=== PATIENT | female | born 1960 | race Caucasian/White ===

== ENCOUNTER 2017-12-10 13:51 | Outpatient (CLI) | payer MEDICARE | END 2017-12-10 13:52 | disposition home or self-care (01) | LOC: BICULT 13:51 | PROVIDERS: ATTEND Family Medicine | DX: M79.605 Pain in left leg (principal); M79.604 Pain in right leg; M25.521 Pain in right elbow; M81.0 Age-related osteoporosis without current pathological fracture | CPT/HCPCS: 93970 ==

== ENCOUNTER 2017-12-10 14:23 | Outpatient (CLI) | payer MEDICARE | END 2017-12-10 14:24 | disposition home or self-care (01) | LOC: BICMAMMO 14:23 | PROVIDERS: ATTEND Family Medicine | DX: M25.522 Pain in left elbow (principal); M79.605 Pain in left leg; M79.604 Pain in right leg; M85.852 Other specified disorders of bone density and structure, left thigh; M85.851 Other specified disorders of bone density and structure, right thigh | CPT/HCPCS: 77063; 77067; 77080 ==

== ENCOUNTER 2018-04-22 09:15 | Outpatient (CLI) | payer MEDICARE ==
--- NOTE | 2018-04-22 10:16 | RAD ---
LUMBAR SPINE TWO VIEWS: History: 57-year-old female with history of pain and osteoporosis. Prior surgery in 2002. Comparison: 01-31-17 FINDINGS: Laminectomy changes at L4 and L5 and S1 with left sided pedicle screws. Moderate anterolisthesis of L 5 on S1 which appears stable. Surgical clips overlie the left sacral ala. Generalized disc osteophyto sis and facet arthrosis. IMPRESSION: Post-operative laminectomy with pedicle screw placement changes at L4 through S1 with overall stable appearing anterolisthesis of L5 on S1. POS: [facility]
--- NOTE | 2018-04-22 11:51 | RAD ---
CHEST 2 VIEWS: Date: 04/22/18 HISTORY: Pleurodynia. FINDINGS: Normal cardiac silhouette. Pulmonary vessels and hilum are normal. Costophrenic angles are clear. Chr onic changes lung parenchyma. No consolidation or mass. No pneumothorax or osseous abnormalities. Sta ble calcified granuloma in the right lung base. IMPRESSION: No acute cardiopulmonary process. POS: [facility]
--- NOTE | 2018-04-22 11:55 | RAD ---
THORACIC SPINE RADIOGRAPHS THREE VIEW SERIES: Indication: Pain. History of osteoporosis. FINDINGS: Vertebral body heights of the thoracic spine are maintained. No significant subluxation. Minimal endp late degenerative osteophytosis is present. There is vascular calcification at the thoracic aorta. In cidental note of cervical spondylosis. IMPRESSION: No compression fracture of the thoracic spine. POS: [facility]
== END 2018-04-22 09:16 | disposition home or self-care (01) ==
LOC: BICRAD 09:15
PROVIDERS: ATTEND Family Medicine
DX: M43.17 Spondylolisthesis, lumbosacral region (principal); M81.0 Age-related osteoporosis without current pathological fracture; R07.81 Pleurodynia; Z98.890 Other specified postprocedural states
CPT/HCPCS: 71046; 72072; 72100

== ENCOUNTER 2018-11-01 08:54 | Outpatient (CLI) | payer MEDICARE ==
--- NOTE | 2018-11-01 09:48 | RAD ---
XR Shoulder Rt 3 View STANDARD: 11/01/2018 12:00 AM CLINICAL INDICATION: Pain of right shoulder COMPARISON: None. FINDINGS: Fracture:No fracture. Arthropathy:Moderate arthropathy. Incidental findings:None of significance. IMPRESSION: 1. No acute osseous abnormality.
--- NOTE | 2018-11-01 09:48 | RAD ---
Exam:Left shoulder 3 views HISTORY: Pain COMPARISON: None FINDINGS: Moderate degenerative change in the acromioclavicular joint space Visualized left ribs are unremarkable Glenohumeral joint space preserved. No fracture or dislocation IMPRESSION: Degenerative changes as above.
--- NOTE | 2018-11-01 09:50 | RAD ---
Exam: Chest 2 views HISTORY:COPD, lower respiratory infection Comparison: 04/22/2018 FINDINGS: Lungs: Mild patchy bilateral perihilar densities. Stable granulomatous calcification right lung base Cardiac silhouette: Normal size Pulmonary vessels: Mild central prominence Pleural Spaces: Clear Pneumothorax: None Osseous abnormalities: None of acuity. IMPRESSION: Findings which favor mild edema. Correlate clinically
== END 2018-11-01 08:55 | disposition home or self-care (01) ==
LOC: BICRAD 08:54
PROVIDERS: ATTEND Family Medicine
DX: M25.511 Pain in right shoulder (principal); M25.512 Pain in left shoulder; J44.0 Chronic obstructive pulmonary disease with (acute) lower respiratory infection; M19.011 Primary osteoarthritis, right shoulder; M19.012 Primary osteoarthritis, left shoulder
CPT/HCPCS: 71046

== ENCOUNTER 2019-07-17 07:56 | Outpatient (CLI) | payer MEDICARE ==
--- NOTE | 2019-07-17 08:20 | RAD ---
EXAM: Chest 2 views: HISTORY: Shortness of breath and cough COMPARISON: 11/01/2018 FINDINGS: There is a normal-sized cardiomediastinal silhouette. There is no evidence of consolidation, mass, or pleural effusion. The bones are unremarkable. IMPRESSION: No evidence of acute cardiopulmonary disease
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
== END 2019-07-17 07:57 | disposition home or self-care (01) ==
LOC: BICRAD 07:56
PROVIDERS: ATTEND Family Medicine
DX: M79.609 Pain in unspecified limb (principal); M54.9 Dorsalgia, unspecified; V89.2XXA Person injured in unspecified motor-vehicle accident, traffic, initial encounter
CPT/HCPCS: 71046; 72100; 72170

== ENCOUNTER 2020-07-08 08:06 | Outpatient (CLI) | payer MEDICARE ==
--- NOTE | 2020-07-08 09:16 | MMO ---
Bilateral MAMMO Bilat Screen [facility]. CLINICAL HISTORY: Patient is 60 years old and is seen for screening. The patient has the following family history of breast cancer: cousin female. The patient has no personal history of cancer. VIEWS: The views performed were: bilateral craniocaudal with tomosynthesis and bilateral mediolateral oblique with tomosynthesis. FILMS COMPARED: The present examination has been compared to prior imaging studies performed at [facility] on 06/20/2012 and 12/10/2017. This study has been interpreted with the assistance of computer-aided detection. MAMMOGRAM FINDINGS: There are scattered fibroglandular densities. There are no suspicious masses, suspicious calcifications, or new areas of architectural distortion. IMPRESSION: THERE IS NO MAMMOGRAPHIC EVIDENCE OF MALIGNANCY. A ROUTINE FOLLOW-UP MAMMOGRAM IN 1 YEAR IS RECOMMENDED. THE RESULTS OF THIS EXAM WERE SENT TO THE PATIENT. ACR BI-RADS Category 1 - Negative MAMMOGRAPHY NOTE: 1. A negative mammogram report should not delay a biopsy if a dominant of clinically suspicious mass is present. 2. Approximately 10% to 15% of breast cancers are not detected by mammography. 3. Adenosis and dense breasts may obscure an underlying neoplasm. Reported by: JOHNATHON MORGAN MD Electonically Signed: [id number]
--- NOTE | 2020-07-08 10:24 | RAD ---
2 VIEWS CHEST: Date: 07/08/2020 COMPARISON: 07/17/2019. HISTORY: Chest pain, COPD. FINDINGS: Stable mild increased linear interstitial density and stable pulmonary hyperinflation. No pneumothora x, pleural fluid, focal consolidation, or alveolar edema. IMPRESSION: No significant interval change. POS: [facility]
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
== END 2020-07-08 08:07 | disposition home or self-care (01) ==
LOC: BICMAMMO 08:06
PROVIDERS: ATTEND Family Medicine
DX: Z12.31 Encounter for screening mammogram for malignant neoplasm of breast (principal); M25.511 Pain in right shoulder; R07.9 Chest pain, unspecified; M54.9 Dorsalgia, unspecified; Z80.3 Family history of malignant neoplasm of breast
CPT/HCPCS: 71046; 77063; 77067

== ENCOUNTER 2020-07-29 20:25 | Emergency (ER) | payer MEDICARE ==
[2020-07-29] MEDS ORDERED: Ketorolac Tromethamine 30 MG/ML VIAL ONE (22:25)
[2020-07-29] MEDS ORDERED: Boostrix 0.5 ML (Tdap) VIAL ONE (22:41)
== END 2020-07-29 22:45 | disposition home or self-care (01) ==
LOC: ERS 20:25
DX: S90.31XA Contusion of right foot, initial encounter (principal); S80.211A Abrasion, right knee, initial encounter; S70.312A Abrasion, left thigh, initial encounter; E11.9 Type 2 diabetes mellitus without complications; E78.5 Hyperlipidemia, unspecified; E78.00 Pure hypercholesterolemia, unspecified; I10 Essential (primary) hypertension; Z23 Encounter for immunization; F17.210 Nicotine dependence, cigarettes, uncomplicated; W01.0XXA Fall on same level from slipping, tripping and stumbling without subsequent striking against object, initial encounter
CPT/HCPCS: 90471; 90715; 96372; J1885

== ENCOUNTER 2020-08-03 08:38 | Outpatient (CLI) | payer MEDICARE ==
--- NOTE | 2020-08-03 10:20 | ULT ---
GALLBLADDER ULTRASOUND: Date: 08/03/2020 HISTORY: Right upper quadrant pain. FINDINGS: Real-time imaging of the right upper quadrant shows slightly less fully distended gallbladder. No gal lstones or any definite gallbladder wall thickening. The liver measures 18.7 cm in length. This is of mild increased echogenicity. Right kidney is normal in size and not obstructed. The pancreas region appears unremarkable. IMPRESSION: 1. Fatty changes of the liver. 2. No evidence of gallstones. Common duct is within normal limits, caliber measuring 5-6 mm. POS: [facility]
== END 2020-08-03 08:39 | disposition home or self-care (01) ==
LOC: BICULT 08:38
PROVIDERS: ATTEND Internal Medicine Gastroenterology
DX: R10.13 Epigastric pain (principal); R19.4 Change in bowel habit; K76.0 Fatty (change of) liver, not elsewhere classified
CPT/HCPCS: 76705

== ENCOUNTER 2020-09-30 20:06 | Observation (INO) | payer MEDICARE ==
[2020-09-30 21:07] LABS: #Basophils 0.1 thou/uL (0.0-0.2); #Eosinphils 0.3 thou/uL (0.0-0.7); #Lymphocytes 3.1 thou/uL (1.20-3.40); #Monocytes 0.6 thou/uL (0.11-0.59); #Neutrophils 5.2 thou/uL (1.40-6.50); %Eosinophils 3.5 % (0.0-10.0); %Lymphocytes 33.4 % (21.0-51.0); %Monocytes 6.2 % (0.0-10.0); Hemoglobin 15.1 g/dL (12.0-16.0); Mean Corpuscular HGB CONC 33.6 g/dL (32.0-36.0); Mean Corpuscular Hemoglobin 30.3 pg (27.0-31.0); Mean Corpuscular Volume 90.1 fL (78.0-98.0); Mean Platelet Volume 8.5 fL (7.4-10.4); Platelet Count 271 thou/uL (130-400); RBC Distribution Width 12.7 % (11.5-14.5); White Blood Cell (WBC) Count 9.3 thou/uL (4.8-10.8)
[2020-09-30 21:27] LABS: ALT (SGPT) 18 U/L (8-55); AST (SGOT) 13 U/L (5-34); Albumin 4.3 g/dL (3.4-4.8); Alkaline Phosphatase 63 U/L (40-110); Anion Gap 14 mmol/L (10-20); BUN (Urea Nitrogen) 15 mg/dL (9.8-20.1); Bilirubin, Total 0.3 mg/dL (0.2-1.2); Calc. Creatinine Clearance 0 mL/min (70-130); Calcium 9.7 mg/dL (7.8-10.44); Carbon Dioxide 27 mmol/L (23-31); Chloride 99 mmol/L (98-107); Glucose 196 mg/dL (80-115); Lipase 27 U/L (8-78); Protein, Total 7.3 g/dL (5.8-8.1); Sodium 136 mmol/L (136-145)
[2020-09-30] MEDS ORDERED: Nitroglycerin 0.4 MG TAB 1 EACH ONE (22:07)
[2020-09-30] MEDS ORDERED: Aspirin Chewable 81 MG TAB ONE (22:07)
[2020-10-01] MEDS ORDERED: Ondansetron PF 4 MG/2 ML Vial IVP PRN (00:30)
[2020-10-01] MEDS ORDERED: Ondansetron ODT 4 MG TAB SL PRN (00:30)
[2020-10-01] MEDS ORDERED: Acetaminophen 325 MG TAB PO PRN (00:30)
[2020-10-01 00:45] VITALS: BMI 27.8
[2020-10-01 00:51] LABS: Troponin I Less than 0.010 ng/mL (< 0.028)
[2020-10-01] MEDS ORDERED: Acetaminophen 650 MG Suppository PR PRN (02:34)
[2020-10-01] MEDS ORDERED: Acetaminophen 325 MG TAB PO SCH (03:00)
[2020-10-01 03:19] LABS: #Basophils 0.1 thou/uL (0.0-0.2); #Eosinphils 0.3 thou/uL (0.0-0.7); #Lymphocytes 2.8 thou/uL (1.20-3.40); #Monocytes 0.5 thou/uL (0.11-0.59); #Neutrophils 4.1 thou/uL (1.40-6.50); %Basophils 1.2 % (0.0-1.0); %Eosinophils 3.6 % (0.0-10.0); %Lymphocytes 36.2 % (21.0-51.0); %Monocytes 5.9 % (0.0-10.0); %Neutrophils 53.1 % (42.0-75.0); Hemoglobin 13.9 g/dL (12.0-16.0); Mean Corpuscular HGB CONC 33.7 g/dL (32.0-36.0); Mean Corpuscular Hemoglobin 30.6 pg (27.0-31.0); Mean Corpuscular Volume 90.7 fL (78.0-98.0); Mean Platelet Volume 8.7 fL (7.4-10.4); Platelet Count 237 thou/uL (130-400); RBC Distribution Width 12.6 % (11.5-14.5); Red Blood Cell (RBC) Count 4.56 mill/uL (4.20-5.40); White Blood Cell (WBC) Count 7.8 thou/uL (4.8-10.8)
[2020-10-01] MEDS ORDERED: HumaLOG 300 UNITS/3 ML VIAL SC PRN ×2 (03:21)
[2020-10-01] MEDS ORDERED: Dextrose 5% in Water 1,000 ML IV PRN (03:21)
[2020-10-01] MEDS ORDERED: Dextrose 50% Abboject 50 ML SYRINGE SLOW IVP PRN (03:21)
[2020-10-01 03:43] LABS: Anion Gap 14 mmol/L (10-20); BUN (Urea Nitrogen) 15 mg/dL (9.8-20.1); Calc. Creatinine Clearance 94 mL/min (70-130); Calcium 8.7 mg/dL (7.8-10.44); Carbon Dioxide 22 mmol/L (23-31); Chloride 105 mmol/L (98-107); Cholesterol 174 mg/dl (< 200 Desired); Glucose 184 mg/dL (80-115); HDL Cholesterol 29 mg/dL (>60 Neg Risk); LDL Cholesterol, Calculated 118 mg/dL; Potassium 3.5 mmol/L (3.5-5.1); Sodium 137 mmol/L (136-145); Triglycerides 133 mg/dL (Less than 150)
[2020-10-01 05:24] LABS: SARS-CoV-2 PCR by NAA Not Detected (NotDetected)
[2020-10-01] MEDS ORDERED: Nitroglycerin 2% Ointment 1 INCH/1 GM Packet TOP SCH (06:00)
[2020-10-01] MEDS ORDERED: Alendronate Sodium 70 mg Tablet PO SCH (09:00)
[2020-10-01] MEDS ORDERED: Amlodipine 10 MG TAB PO SCH (09:00)
[2020-10-01] MEDS ORDERED: Magnesium Chloride 64 MG TAB PO SCH (09:00)
[2020-10-01] MEDS ORDERED: Aspirin 81 mg Enteric Coated Tablet PO SCH (09:00)
[2020-10-01] MEDS ORDERED: cloNIDine 0.1 MG TAB PO SCH (09:00)
[2020-10-01] MEDS ORDERED: Aspirin Chewable 81 MG TAB PO SCH (09:00)
[2020-10-01] MEDS ORDERED: Famotidine 20 MG TAB PO SCH (09:00)
[2020-10-01] MEDS ORDERED: Potassium Chloride 20 MEQ TAB PO SCH (12:00)
[2020-10-01 12:27] VITALS: BP 159/75; TEMP 97.9
[2020-10-01] MEDS ORDERED: ADENOSINE 60 MG/20 ML VIAL ONE (12:41)
[2020-10-01] MEDS ORDERED: traZODone HCl 50 MG TAB PO SCH (21:00)
[2020-10-01] MEDS ORDERED: Atorvastatin Calcium 10 MG TAB PO SCH (21:00)
== END 2020-10-01 14:20 | disposition home or self-care (01) ==
LOC: ERS 20:06 → 2SW 22:19
PROVIDERS: ADMIT Student in an Organized Health Care Education/Training Program; ATTEND Internal Medicine
DX: R07.89 Other chest pain (principal); I12.9 Hypertensive chronic kidney disease with stage 1 through stage 4 chronic kidney disease, or unspecified chronic kidney disease; E11.22 Type 2 diabetes mellitus with diabetic chronic kidney disease; N18.2 Chronic kidney disease, stage 2 (mild); E78.5 Hyperlipidemia, unspecified; F17.210 Nicotine dependence, cigarettes, uncomplicated; E78.00 Pure hypercholesterolemia, unspecified; Z79.82 Long term (current) use of aspirin; Z79.83 Long term (current) use of bisphosphonates; Z79.84 Long term (current) use of oral hypoglycemic drugs; Z79.899 Other long term (current) drug therapy; Z88.5 Allergy status to narcotic agent; Z20.822 Contact with and (suspected) exposure to COVID-19
CPT/HCPCS: 71045; 78452; 80048; 80053; 80061; 82962; 83605; 83690; 83735; 83880; 84484 ×2; 85025 ×2; 85379; 93005; 93017; 94760; 99285; A9500; U0003; U0005; 36415; 36416; 87635; G0378; J0153